=== PATIENT | female | born 1990 | race Two or more races ===

== ENCOUNTER 2024-07-15 23:08 | Emergency (ER) | payer OTHER ==
[~2024-07-15] VITALS: Ht 160 cm; Wt 68.2 kg
[2024-07-15 23:21] VITALS: BP 120/78; PULSE 120; RESP 18; TEMP 99.4; O2SAT 100
[2024-07-16] MEDS ORDERED: SODIUM CHLORIDE 0.9% 1,000 ML IV ONE (00:15)
== END 2024-07-16 00:45 | disposition left against medical advice (07) ==
LOC: EMS 23:26
DX: R11.10 Vomiting, unspecified (principal); Z53.21 Procedure and treatment not carried out due to patient leaving prior to being seen by health care provider